=== PATIENT | male | born 1935 | race Caucasian/White ===

== ENCOUNTER 2019-05-22 08:01 | Emergency (ER) | payer MEDICARE ==
[~2019-05-22] VITALS: Ht 165.1 cm; Wt 95.3 kg
[~2019-05-22 08:01] MED LIST: ASPI-515 PO; BRIM5DRO4 RIGHTEYE; CHOL100012 PO; COLE625T12 PO; FENO135C PO; GABA-826 PO; HYDROCHLOROTH12.5 MG PO; INSU100I11 SC; INSU100V13 SC; MULT1TAB13 PO; POTA10TA17 PO; TELM1TAB PO; TRAM50TA2 PO; [UNRECOGNIZED DRUG - CODE]
--- NOTE | 2019-05-22 09:12 | NUR ---
BEDSIDE REPORT RECEIVED FROM SHANAE ZELAYA. PT TO CT.
[2019-05-22 09:16] LABS: MICROSCOPIC AUTO
[2019-05-22 09:21] LABS: BASOPHILS # (AUTO) 0.03 x10^3/uL (0-0.1); BASOPHILS % (AUTO) 0 % (0-1); EOSINOPHILS # (AUTO) 0.08 x10^3/uL (0-0.4); EOSINOPHILS % (AUTO) 1 % (1-7); LYMPHOCYTES # (AUTO) 0.98 x10^3/uL (1-3.4); LYMPHOCYTES % (AUTO) 11 % (22-44); MD NO; MEAN CORPUSCULAR HEMOGLOBIN 27.7 pg (27.5-34.5); MEAN CORPUSCULAR HGB CONC 32.4 g/dL (33.2-36.2); MEAN CORPUSCULAR VOLUME 85.4 fL (81-97); MEAN PLATELET VOLUME 9.2 fL (7.4-10.4); MONOCYTES # (AUTO) 0.52 x10^3/uL (0.2-0.8); MONOCYTES % (AUTO) 6 % (2-9); NEUTROPHILS % (AUTO) 82 % (42-75); PLATELET COUNT 296 x10^3/uL (130-400); RED BLOOD COUNT 5.94 x10^6/uL (4.38-5.82); RED CELL DISTRIBUTION WIDTH 14.3 % (9.4-14.8)
--- NOTE | 2019-05-22 09:29 | NUR ---
PT BACK FROM CT.
[2019-05-22 09:30] LABS: ALBUMIN 3.8 g/dL (3.4-5.0); ANION GAP 9 mmol/L (5-15); CALCIUM 9.8 mg/dL (8.5-10.1); CHLORIDE 102 mmol/L (98-107); CREATININE 1.65 mg/dL (0.7-1.3)
[2019-05-22 09:38] VITALS: BP 152/93
[2019-05-22 09:38] LABS: CULTURE INDICATED? NO
--- NOTE | 2019-05-22 09:38 | NUR ---
PT HERE WITH C/O BACK PAIN, L SIDE, RIGHT ABOVE L HIP POSTERIORLY. PT STATES SIMILAR PAIN TO KIDNEY STONE OR CHRONIC BACK PAIN. NO CVA TENDERNESS NOTED BY THIS RN. PT AAO X 4, NAD, ROOM AIR. ON GURNEY, ON MONITOR, IN GOWN AND CALL LIGHT WITHIN REACH. FAMILY AT BEDSIDE. UA SENT, LABS DRAWN, AND CT COMPLETED.
--- NOTE | 2019-05-22 10:41 | NUR ---
Patient/Caregiver given discharge instructions and they have confirmed that they understand the instructions. Patient ambulatory with steady gait.
== END 2019-05-22 11:01 | disposition home or self-care (01) ==
LOC: ED 10:20
DX: N20.0 Calculus of kidney (principal); N40.0 Benign prostatic hyperplasia without lower urinary tract symptoms; E11.65 Type 2 diabetes mellitus with hyperglycemia; M19.90 Unspecified osteoarthritis, unspecified site; I10 Essential (primary) hypertension; E78.00 Pure hypercholesterolemia, unspecified; Z87.891 Personal history of nicotine dependence
CPT/HCPCS: 36415; 74176; 80048; 81001; 82040; 85025; 99284